=== PATIENT | female | born 1965 | race African-American/Black ===

== ENCOUNTER 2016-07-29 07:53 | Emergency (ER) | payer OTHER ==
[~2016-07-29] VITALS: Ht 175.3 cm; Wt 117.9 kg
[~2016-07-29 07:53] MED LIST: CYCL5TAB PO
[2016-07-29] MEDS ORDERED: IV NORMAL SALINE 1000ML BAG 1,000 ML IV SCH (08:22)
[2016-07-29] MEDS ORDERED: ONDANSETRON PF 4 MG/2 ML VIAL. IV ONE (08:30)
[2016-07-29 08:33] LABS: BILIRUBIN,URINE NEGATIVE (NEG); GLUCOSE,URINE NEGATIVE (NEG); NITRITE,URINE NEGATIVE (NEG); UROBILINOGEN,URINE 0.2 mg/dL (0.2 mg/dL)
[2016-07-29] MEDS: MORPHINE SULFATE 4 MG/ML DISP.SYRIN. IV/SQ PRN ×2 (08:35→09:13)
[2016-07-29 08:36] LABS: BASO # 0.1 x10^3/uL (0.0-0.2); BASO % 1 % (0-3); EOS % 0 % (0-3); HEMATOCRIT 39.8 % (36.0-47.0); HEMOGLOBIN 12.9 g/dL (12.0-15.5); LYMPH % 8 % (24-48); MEAN CORPUSCULAR HEMOGLOBIN 27 pg (25-35); MEAN CORPUSCULAR HGB CONC 33 g/dL (31-37); MEAN CORPUSCULAR VOLUME 84 fL (79-100); MONO % 4 % (0-9); NEUT % 87 % (31-73); PLATELET COUNT 360 x10^3/uL (140-400); RED BLOOD COUNT 4.76 x10^6/uL (3.50-5.40); RED CELL DISTRIBUTION WIDTH 15.4 % (11.5-14.5); WHITE BLOOD COUNT 12.3 x10^3/uL (4.0-11.0)
[2016-07-29 08:48] LABS: BACTERIA,URINE 0 /HPF (0-FEW); PROTEIN,URINE NEGATIVE (NEG-TRACE); RBC,URINE 0 /HPF (0-2); SQUAMOUS EPITHELIAL CELL,UR FEW /LPF; WBC,URINE 0 /HPF (0-4)
[2016-07-29 08:51] LABS: CALCIUM 9.3 mg/dL (8.5-10.1); CREATININE 0.7 mg/dL (0.6-1.0); GFR 107.2; POTASSIUM 3.7 mmol/L (3.5-5.1)
[2016-07-29 08:57] LABS: ALBUMIN 3.7 g/dL (3.4-5.0); ALBUMIN/GLOBULIN RATIO 0.8 (1.0-1.7); TOTAL BILIRUBIN 0.3 mg/dL (0.2-1.0); TOTAL PROTEIN 8.4 g/dL (6.4-8.2)
[2016-07-29] MEDS ORDERED: CONTRAST GIVEN MC PRN (09:15)
[2016-07-29] MEDS ORDERED: IOHEXOL 300 MG/ML 75 ML VIAL IV ONE (09:15)
--- NOTE | 2016-07-29 09:57 | RAD ---
EXAM: Abdomen and pelvis CT with intravenous contrast. HISTORY: Nausea, vomiting and diarrhea. Bloody stools. TECHNIQUE: Computed tomographic images of the abdomen and pelvis were obtained following the administration of 75 cc Omnipaque 300 intravenous contrast. Multiplanar reformatting was performed. COMPARISON: 12/05/2010. FINDINGS: Evaluation of the lower thorax demonstrates posterior dependent atelectasis. There is no infiltrate or effusion. There is hepatomegaly and hepatic steatosis. The gallbladder, pancreas, spleen and right adrenal gland are unremarkable. There is slight thickening of the left adrenal gland without a discrete nodule. There are 5 mm hypodense lesions within both kidneys, too small to characterize. There is no obstructive uropathy. The bladder is unremarkable. The appendix is prominent in caliber. However, there is no appendiceal wall thickening or surrounding stranding to suggest appendicitis. There is circumferential colonic wall thickening with slight pericolonic stranding extending from the distal transverse colon to the mid descending colon. There is no bowel obstruction. No pathologically enlarged lymph node is seen. There is no suspicious osseous lesion. There are degenerative changes throughout the lumbar spine. IMPRESSION: 1. Segmental mucosal thickening involving the colon from the distal transverse colon to the mid descending colon. This is likely due to infectious colitis or active inflammatory bowel disease. Follow-up to confirm resolution and exclude a mucosal lesion in this location. 2. Tiny hypodense lesions within both kidneys, too small to characterize and likely cysts. PQRS Compliance Statement: One or more of the following individualized dose reduction techniques were utilized for this examination: 1. Automated exposure control 2. Adjustment of the mA and/or kV according to patient size 3. Use of iterative reconstruction technique
--- NOTE | 2016-07-29 10:00 | PHYS DOC ---
Past Medical History Past Medical History: Diabetes-Type II, GERD, High Cholesterol, Hypertension, Other Additional Past Medical Histor: chronic back pain, herniated discs, sciatica Past Surgical History: Cervical Fusion, Hysterectomy, Other Additional Past Surgical Histo: elbow, hemorrhoidectomy Additional Information: nonsmoker Alcohol Use: None Drug Use: None Adult General Chief Complaint Chief Complaint: RECTAL BLEED HPI HPI Patient is a 51 year old female who presents with nausea, vomiting, diarrhea, and abdominal pain starting yesterday. She reports pain in the epigastric region. She's had 5-6 episodes of emesis. She's had numerous episodes of diarrhea. She reports that the bowel movements are bloody with mostly blood now passing. She denies fever or urinary symptoms. She feels generally weak. She reports having a normal colonoscopy approximately 1 year ago. Her PCP is Dr. Lupe Dorsey. Review of Systems Review of Systems Constitutional: Denies fever or chills. [] Eyes: Denies change in visual acuity, redness, or eye pain. [] HENT: Denies ear pain, nasal congestion or sore throat. [] Respiratory: Denies cough or shortness of breath. [] Cardiovascular: Denies chest pain, palpitations or edema. [] GI: Reports epigastric pain, nausea, vomiting, diarrhea, and bloody stools. : Denies dysuria, hematuria or urinary frequency. [] Musculoskeletal: Denies back pain or joint pain. [] Integument: Denies rash or skin lesions. [] Neurologic: Denies headache, focal weakness or sensory changes. [] Endocrine: Denies polyuria or polydipsia. [] Psych: Denies anxiety or depression. [] All systems reviewed and negative unless otherwise stated in the HPI. Current Medications Current Medications Current Medications Medications (Trade) Dose Ordered Sig/Brittney Start Time Stop Time Status Last Admin Dose Admin Info (Do NOT chart on this entry -- for MONITORING) 1 each PRN DAILY PRN 07/29/16 09:15 07/31/16 09:14 Iohexol (Omnipaque 300 Mg/ml) 75 ml 1X ONCE 07/29/16 09:15 07/29/16 09:16 DC 07/29/16 09:27 75 ML Morphine Sulfate 4 mg 4 mg PRN Q15MIN PRN 07/29/16 08:30 07/30/16 08:29 07/29/16 09:13 4 MG Multi-Ingredient Mouthwash/Gargle (Gi Cocktail Single Dose) 15 ml 1X ONCE 07/29/16 10:15 07/29/16 10:16 DC 07/29/16 10:04 15 ML Ondansetron HCl (Zofran) 4 mg 1X ONCE 07/29/16 08:30 07/29/16 08:31 DC 07/29/16 08:34 4 MG Sodium Chloride (Iv Sodium Chloride 0.9% 1000ml Bag) 1,000 ml @ 1,000 mls/hr Q1H 07/29/16 08:22 07/29/16 09:21 DC 07/29/16 08:35 1,000 MLS/HR Allergies Allergies Allergies Coded Allergies Type Severity Reaction Last Updated Verified No Known Drug Allergies 05/08/14 No Physical Exam Physical Exam Constitutional: Well developed, well nourished, no acute distress, non-toxic appearance. [] HENT: Normocephalic, atraumatic, oropharynx moist. [] Eyes: PERRLA, EOMI, conjunctiva normal, no discharge. [] Neck: Normal range of motion, no tenderness, supple, no stridor. [] Cardiovascular: Heart rate regular rhythm, no murmur. [] Lungs & Thorax: Bilateral breath sounds clear to auscultation without wheezes, rales, or rhonchi. [] Abdomen: Bowel sounds normal, soft, epigastric tenderness, no masses, no pulsatile masses. [] Skin: Warm, dry, no erythema, no rash. [] Extremities: No tenderness, ROM intact, no edema. Distal pulses equal bilaterally. [] Neurologic: Alert and oriented X 3, normal motor function, normal sensory function, no focal deficits noted. [] Psychologic: Affect normal, judgement normal, mood normal. [] Current Patient Data Vital Signs Vital Signs Date Time Temp Pulse Resp B/P Pulse Ox O2 Delivery O2 Flow Rate FiO2 07/29/16 09:45 15 07/29/16 08:05 98.1 87 159/84 94 Room Air 98.1 Lab Values Laboratory Tests Test 07/29/16 08:01 07/29/16 08:20 Urine Collection Type Unknown Urine Color Yellow Urine Clarity Clear Urine pH 8.0 Urine Specific [place] 1.015 Urine Protein Negativemg/dL (NEG-TRACE) Urine Glucose (UA) Negativemg/dL (NEG) Urine Ketones (Stick) Negativemg/dL (NEG) Urine Blood Negative (NEG) Urine Nitrite Negative (NEG) Urine Bilirubin Negative (NEG) Urine Urobilinogen Dipstick 0.2mg/dL (0.2 mg/dL) Urine Leukocyte Esterase Negative (NEG) Urine RBC 0/HPF (0-2) Urine WBC 0/HPF (0-4) Urine Squamous Epithelial Cells Few/LPF Urine Bacteria 0/HPF (0-FEW) White Blood Count 12.3x10^3/uL (4.0-11.0) H Red Blood Count 4.76x10^6/uL (3.50-5.40) Hemoglobin 12.9g/dL (12.0-15.5) Hematocrit 39.8% (36.0-47.0) Mean Corpuscular Volume 84fL (79-100) Mean Corpuscular Hemoglobin 27pg (25-35) Mean Corpuscular Hemoglobin Concent 33g/dL (31-37) Red Cell Distribution Width 15.4% (11.5-14.5) H Platelet Count 360x10^3/uL (140-400) Neutrophils (%) (Auto) 87% (31-73) H Lymphocytes (%) (Auto) 8% (24-48) L Monocytes (%) (Auto) 4% (0-9) Eosinophils (%) (Auto) 0% (0-3) Basophils (%) (Auto) 1% (0-3) Neutrophils # (Auto) 10.8x10^3uL (1.8-7.7) H Lymphocytes # (Auto) 1.0x10^3/uL (1.0-4.8) Monocytes # (Auto) 0.5x10^3/uL (0.0-1.1) Eosinophils # (Auto) 0.0x10^3/uL (0.0-0.7) Basophils # (Auto) 0.1x10^3/uL (0.0-0.2) Segmented Neutrophils % 78% (35-66) H Band Neutrophils % 2% (0-9) Lymphocytes % 10% (24-48) L Monocytes % 9% (0-10) Basophils % 1% (0-3) Platelet Estimate Adequate (ADEQUATE) Sodium Level 143mmol/L (136-145) Potassium Level 3.7mmol/L (3.5-5.1) Chloride Level 103mmol/L (98-107) Carbon Dioxide Level 27mmol/L (21-32) Anion Gap 13 (6-14) Blood Urea Nitrogen 12mg/dL (7-20) Creatinine 0.7mg/dL (0.6-1.0) Estimated GFR (Cockcroft-Gault) 107.2 BUN/Creatinine Ratio 17 (6-20) Glucose Level 189mg/dL (70-99) H Calcium Level 9.3mg/dL (8.5-10.1) Total Bilirubin 0.3mg/dL (0.2-1.0) Aspartate Amino Transferase (AST) 14U/L (15-37) L Alanine Aminotransferase (ALT) 25U/L (14-59) Alkaline Phosphatase 81U/L (46-116) Total Protein 8.4g/dL (6.4-8.2) H Albumin 3.7g/dL (3.4-5.0) Albumin/Globulin Ratio 0.8 (1.0-1.7) L Lipase 89U/L (73-393) Laboratory Tests 07/29/16 08:20 Laboratory Tests 07/29/16 08:20 EKG EKG [] Radiology/Procedures Radiology/Procedures REASON: n/v/d, blood in stool PROCEDURE: ABD PELV W/ IV CONTRAST ONLY EXAM: Abdomen and pelvis CT with intravenous contrast. HISTORY: Nausea, vomiting and diarrhea. Bloody stools. TECHNIQUE: Computed tomographic images of the abdomen and pelvis were obtained following the administration of 75 cc Omnipaque 300 intravenous contrast. Multiplanar reformatting was performed. COMPARISON: 12/05/2010. FINDINGS: Evaluation of the lower thorax demonstrates posterior dependent atelectasis. There is no infiltrate or effusion. There is hepatomegaly and hepatic steatosis. The gallbladder, pancreas, spleen and right adrenal gland are unremarkable. There is slight thickening of the left adrenal gland without a discrete nodule. There are 5 mm hypodense lesions within both kidneys, too small to characterize. There is no obstructive uropathy. The bladder is unremarkable. The appendix is prominent in caliber. However, there is no appendiceal wall thickening or surrounding stranding to suggest appendicitis. There is circumferential colonic wall thickening with slight pericolonic stranding extending from the distal transverse colon to the mid descending colon. There is no bowel obstruction. No pathologically enlarged lymph node is seen. There is no suspicious osseous lesion. There are degenerative changes throughout the lumbar spine. IMPRESSION: 1. Segmental mucosal thickening involving the colon from the distal transverse colon to the mid descending colon. This is likely due to infectious colitis or active inflammatory bowel disease. Follow-up to confirm resolution and exclude a mucosal lesion in this location. 2. Tiny hypodense lesions within both kidneys, too small to characterize and likely cysts. Course & Med Decision Making Course & Med Decision Making Pertinent Labs and Imaging studies reviewed. (See chart for details) Patient is a 51-year-old female presents with nausea, vomiting, diarrhea with bloody stools, and abdominal pain. Upon arrival to the emergency department, her vital signs are stable. On exam, her abdomen is soft and nonsurgical with epigastric tenderness. No significant laboratory abnormalities. Her CT scan shows lightest of the transverse and descending colon. Her pain improved with IV morphine. She received Zofran, a GI cocktail, and Compazine for her nausea. I discussed the results with the patient. She is instructed to follow up with GI after completion of her antibiotic treatment. She is discharged home in stable condition with prescriptions for Cipro, Flagyl, [place], and Zofran. Return precautions were discussed. She verbalizes understanding and agrees with plan. Dragon Disclaimer Dragon Disclaimer This electronic medical record was generated, in whole or in part, using a voice recognition dictation system. Departure Departure Impression: Primary Impression: Colitis Disposition: 01 HOME, SELF-CARE Condition: IMPROVED Referrals: LUPE DORSEY MD (PCP) YEHUDA CARR MD Patient Instructions: Colitis Additional Instructions: Your CT scan shows colitis, which explains the pain, nausea, vomiting, and bloody stools that you have been experiencing. Please complete all of the prescribed antibiotics, even if you are feeling better. Please take the prescribed pain medication as directed. Do not drive or operate heavy machinery while taking pain medication. Please follow-up with the GI doctor listed below or the GI doctor of your choice after completion of the antibiotics. Return to emergency department if you have fever, increased pain, continued vomiting, increased blood in the stools, or other new or concerning symptoms. Scripts Ciprofloxacin Hcl (Cipro)500 Mg Tablet1 Tab PO BID #14 TAB Prov:LEAH BARROS 07/29/16 Ondansetron (Zofran Odt)4 Mg Tab.rapdis1 Tab SL Q8HRS #10 TAB Prov:LEAH BARROS 07/29/16 Hydrocodone/Apap 5-325 ([place] 5-325 Tablet)1 Each Tablet1 Tab PO PRN Q6HRS PRN PAIN #20 TAB Prov:LEAH BARROS 07/29/16 Metronidazole (Flagyl)500 Mg Tablet1 Tab PO BID #14 TAB Prov:LEAH BARROS 07/29/16 LEAH BARROS Jul 29, 2016 10:00
[2016-07-29 10:09] LABS: % BASOS 1 % (0-3)
[2016-07-29 10:10] LABS: PLT ESTIMATE ADEQUATE (ADEQUATE)
[2016-07-29] MEDS ORDERED: LIDO:MAALOX:DONNATAL 1:1:1 15 ML SINGLE DOSE SWSW ONE (10:15)
[2016-07-29] MEDS ORDERED: HYDR-971 PO (10:59)
[2016-07-29] MEDS ORDERED: ONDA4TAB10 SL (10:59)
[2016-07-29] MEDS ORDERED: METR500T PO (10:59)
[2016-07-29] MEDS ORDERED: CIPR500T94 PO (10:59)
[2016-07-29 11:08] VITALS: BP 139/67
[2016-07-29] MEDS ORDERED: PROCHLORPERAZINE 10 MG/2 ML VIAL. IV ONE (11:15)
== END 2016-07-29 11:10 | disposition home or self-care (01) ==
LOC: ER 07:53
DX: K52.9 Noninfective gastroenteritis and colitis, unspecified (principal); E11.9 Type 2 diabetes mellitus without complications; K21.9 Gastro-esophageal reflux disease without esophagitis; E78.00 Pure hypercholesterolemia, unspecified; I10 Essential (primary) hypertension; G89.29 Other chronic pain; Z90.710 Acquired absence of both cervix and uterus
CPT/HCPCS: 36415; 74177; 80053; 81001; 83690; 85007; 85027; 96361; 96374; 96375; 96376; 99285; J0780; J2270; J2405; J7030; Q9967

== ENCOUNTER 2016-07-31 11:48 | Inpatient (IN) | payer OTHER ==
[~2016-07-31] VITALS: Ht 180.3 cm; Wt 116.1 kg
[~2016-07-31 11:48] MED LIST changes: +CIPR500T94 PO; +HYDR-971 PO; +METR500T PO; +ONDA4TAB10 SL
[2016-07-31] MEDS ORDERED: IV NORMAL SALINE 1000ML BAG 1,000 ML IV SCH (13:20)
[2016-07-31] MEDS ORDERED: ONDANSETRON PF 4 MG/2 ML VIAL. IV ONE (13:30)
[2016-07-31] MEDS: FENTANYL PF 100 MCG/2 ML VIAL. IV PRN ×3 (13:52→23:34)
[2016-07-31 13:58] LABS: BASO # 0.2 x10^3/uL (0.0-0.2); BASO % 1 % (0-3); EOS % 1 % (0-3); HEMATOCRIT 38.9 % (36.0-47.0); LYMPH # 3.9 x10^3/uL (1.0-4.8); LYMPH % 20 % (24-48); MEAN CORPUSCULAR HEMOGLOBIN 28 pg (25-35); MEAN CORPUSCULAR HGB CONC 33 g/dL (31-37); MEAN CORPUSCULAR VOLUME 84 fL (79-100); MONO % 8 % (0-9); NEUT % 71 % (31-73); PLATELET COUNT 361 x10^3/uL (140-400); RED BLOOD COUNT 4.63 x10^6/uL (3.50-5.40); RED CELL DISTRIBUTION WIDTH 15.7 % (11.5-14.5); WHITE BLOOD COUNT 19.8 x10^3/uL (4.0-11.0)
[2016-07-31 14:01] LABS: CALCIUM 9.6 mg/dL (8.5-10.1); CREATININE 0.8 mg/dL (0.6-1.0); GFR 91.9; POTASSIUM 3.3 mmol/L (3.5-5.1)
[2016-07-31 14:14] LABS: NEG OBC FOB NEG; POS OBC FOB POS
--- NOTE | 2016-07-31 14:38 | PHYS DOC ---
Past Medical History Past Medical History: Diabetes-Type II, GERD, High Cholesterol, Hypertension, Other Additional Past Medical Histor: chronic back pain, herniated discs, sciatica, colitis Past Surgical History: Cervical Fusion, Hysterectomy, Other Additional Past Surgical Histo: elbow, hemorrhoidectomy Additional Information: "quit eight years ago" Alcohol Use: None Drug Use: None Adult General Chief Complaint Chief Complaint: RECTAL BLEED HPI HPI Patient is a 51 year old female who presents with complaints of intractable nausea and vomiting and continued abdominal pain and new bright red blood per rectum. She was seen here 2 days ago and diagnosed with colitis. She went home with Cipro and Flagyl, as well as pain meds and nausea meds. She states she has been vomiting these medications as well as her chronic medications. She has been able to tolerate some liquids however. She is not otherwise tolerating solids. She has continued bilateral lower abdominal pain that is achy, constant , fluctuating in intensity. She had one right red bloody bowel movement today and has not had a bowel movement since. She did not have bowel movement yesterday. She discussed with her primary care doctor, and was recommended to come back to the emergency department for admission with consultation by Dr Faulkner , gastroenterology. She denies fever or chills, chest pain, cough, dyspnea, dysuria, food fear. Review of Systems Review of Systems Constitutional: Denies fever or chills [] Eyes: Denies change in visual acuity, redness, or eye pain [] HENT: Denies nasal congestion or sore throat [] Respiratory: Denies cough or shortness of breath [] Cardiovascular: No additional information not addressed in HPI [] GI: Has abdominal pain, nausea, vomiting, bloody stools and diarrhea [] : Denies dysuria or hematuria [] Musculoskeletal: Denies back pain or joint pain [] Integument: Denies rash or skin lesions [] Neurologic: Denies headache, focal weakness or sensory changes [] Endocrine: Denies polyuria or polydipsia [] Current Medications Current Medications Current Medications Medications (Trade) Dose Ordered Sig/Brittney Start Time Stop Time Status Last Admin Dose Admin Acetaminophen (Tylenol) 650 mg PRN Q4HRS PRN 07/31/16 15:00 08/01/16 14:59 UNV Fentanyl Citrate (Fentanyl 2ml Vial) 50 mcg PRN Q2HR PRN 07/31/16 15:00 08/01/16 14:59 Fentanyl Citrate 50 mcg 50 mcg PRN Q15MIN PRN 07/31/16 13:30 08/01/16 13:29 07/31/16 14:56 50 MCG Ondansetron HCl (Zofran) 4 mg PRN Q8HRS PRN 07/31/16 15:00 08/01/16 14:59 Sodium Chloride (Iv Sodium Chloride 0.9% 1000ml Bag) 1,000 ml @ 1,000 mls/hr Q1H 07/31/16 13:20 07/31/16 14:19 DC 07/31/16 13:48 1,000 MLS/HR Allergies Allergies Allergies Coded Allergies Type Severity Reaction Last Updated Verified No Known Drug Allergies 05/08/14 No Physical Exam Physical Exam Constitutional: Well developed, well nourished, no acute distress, non-toxic appearance. [] HENT: Normocephalic, atraumatic, bilateral external ears normal, oropharynx moist, nose normal. [] Eyes: PERRLA, EOMI. [] Neck: Normal range of motion, supple. [] Cardiovascular:Heart rate regular rhythm [] Lungs & Thorax: Bilateral breath sounds clear to auscultation [] Abdomen: Bowel sounds normal, soft, moderate bilateral lower abdominal tenderness, rectal exam with dark red bloody stool in vault, no external hemorrhoid or fissure, nontender rectal exam. [] Skin: Warm, dry, no erythema, no rash. [] Back: No tenderness, no CVA tenderness. [] Extremities: ROM intact, no edema. [] Neurologic: Alert and oriented X 3, normal motor function, normal sensory function, no focal deficits noted. [] Psychologic: Affect normal, judgement normal, mood normal. [] Current Patient Data Vital Signs Vital Signs Date Time Temp Pulse Resp B/P Pulse Ox O2 Delivery O2 Flow Rate FiO2 07/31/16 14:56 16 98 Room Air 07/31/16 13:25 98.4 86 152/77 98.4 Lab Values Laboratory Tests Test 07/31/16 13:35 07/31/16 13:40 Stool Occult Blood Positive (NEG) White Blood Count 19.8x10^3/uL (4.0-11.0) #H Red Blood Count 4.63x10^6/uL (3.50-5.40) Hemoglobin 13.0g/dL (12.0-15.5) Hematocrit 38.9% (36.0-47.0) Mean Corpuscular Volume 84fL (79-100) Mean Corpuscular Hemoglobin 28pg (25-35) Mean Corpuscular Hemoglobin Concent 33g/dL (31-37) Red Cell Distribution Width 15.7% (11.5-14.5) H Platelet Count 361x10^3/uL (140-400) Neutrophils (%) (Auto) 71% (31-73) Lymphocytes (%) (Auto) 20% (24-48) L Monocytes (%) (Auto) 8% (0-9) Eosinophils (%) (Auto) 1% (0-3) Basophils (%) (Auto) 1% (0-3) Neutrophils # (Auto) 13.9x10^3uL (1.8-7.7) H Lymphocytes # (Auto) 3.9x10^3/uL (1.0-4.8) Monocytes # (Auto) 1.6x10^3/uL (0.0-1.1) H Eosinophils # (Auto) 0.2x10^3/uL (0.0-0.7) Basophils # (Auto) 0.2x10^3/uL (0.0-0.2) Sodium Level 140mmol/L (136-145) Potassium Level 3.3mmol/L (3.5-5.1) L Chloride Level 99mmol/L (98-107) Carbon Dioxide Level 31mmol/L (21-32) Anion Gap 10 (6-14) Blood Urea Nitrogen 10mg/dL (7-20) Creatinine 0.8mg/dL (0.6-1.0) Estimated GFR (Cockcroft-Gault) 91.9 Glucose Level 157mg/dL (70-99) H Calcium Level 9.6mg/dL (8.5-10.1) Laboratory Tests 07/31/16 13:40 Laboratory Tests 07/31/16 13:40 Course & Med Decision Making Course & Med Decision Making Pertinent Labs and Imaging studies reviewed. (See chart for details) She has leukocytosis and mild hypokalemia. Rectal exam with obvious bloody stool. Concern for infectious colitis with bloody stool versus lower GI bleed associated with colitis versus ischemic colitis. Discussed case with Dr. Hui , who will admit. Discussed case with Dr. Faulkner, gastroenterology, who will see her and patient. He recommends against antibiotics at this time. Dragon Disclaimer Dragon Disclaimer This electronic medical record was generated, in whole or in part, using a voice recognition dictation system. Departure Departure Impression: Primary Impression: GI bleed Additional Impression: Colitis Disposition: ADMITTED INPATIENT Condition: STABLE Referrals: LUPE GUZMÁN MD (PCP) Problem Qualifiers Primary Impression: GI bleed GI bleed type/associated pathology: unspecified gastrointestinal hemorrhage type Qualified Code: K92.2 - Gastrointestinal hemorrhage, unspecified Kvng ASHLEY MD Jul 31, 2016 14:38
[2016-07-31] MEDS ORDERED: ONDANSETRON PF 4 MG/2 ML VIAL. IV PRN (15:00)
[2016-07-31] MEDS ORDERED: ACETAMINOPHEN 325 MG TABLET. PO PRN (15:00)
[2016-07-31] MEDS: POTASSIUM CHLORIDE 30 MEQ in IV 1/2 NORMAL SALINE 1,000 ML IV SCH (15:33)
--- NOTE | 2016-07-31 16:24 | ACF ---
Admission Forms Criteria GASTROINTESTINAL BLEEDING Clinical Indications for Inpatient Care (Place 'X' for any and all applicable criteria): Ongoing inpatient care may be indicated for gastrointestinal bleeding with ANY ONE of the following (4)(20)(21)(22)(23)(24): [X]I. Active bleeding (eg, fresh voluminous blood in emesis or nasogastric aspirate, or per rectum) [ ]II. Hemodynamic instability [ ]III. Anticoagulation therapy or coagulopathy ((eg, advanced liver disease, irreversible anticoagulation) [ ]IV. Ischemic colitis (22) [ ]V. Endoscopy showing arterial bleeding, adherent clot, nonbleeding visible vessel, varices, flat red spots, ulcer size greater than 2 cm, or portal hypertensive gastropathy [ ]. High-risk low platelet count [ ]VII. Anemia requiring inpatient care as indicated by ANY ONE of the following a)[ ] Cognitive impairment b)[ ] Syncope c)[ ] Heart failure d)[ ] Chest pain e)[ ] Dyspnea f)[ ] Other findings suggesting inadequate perfusion (eg, peripheral or myocardial ischemia, end organ dysfunction) [ ]VIII. High-risk low platelet count [ ]IX. Suspected variceal cause of bleeding as indicated by ANY ONE of the following(27)(28): a)[ ] Known varices b)[ ] Hepatomegaly or splenomegaly c)[ ] Ascites d)[ ] Jaundice or scleral icterus e)[ ] History of liver disease (eg, cirrhosis) f)[ ] Physical findings of portal hypertension (eg, caput medusa) g)[ ] Comorbid disorder indicating risk for portal vein thrombosis (eg , abdominal surgery, sepsis, shock, exchange transfusion, prior umbilical vein catheterization) Extended stay may be needed until ALL of the following are present(20)(38)(47): [ ]a) Hemodynamic stability [ ]b) No evidence of active bleeding (eg, stable Hematocrit) [ ]c) Platelet count, prothrombin time, and partial thromboplastin time acceptable for next level of care [ ]d) Surgical or other acute intervention not needed [ ]e) Oral hydration and diet tolerated The original [email or web address] content created by [employer] has been revised. The portions of the content which have been revised are identified through the use of italic text or in bold, and [employer] has neither reviewed nor approved the modified material. All other unmodified content is copyright [facility]. Please see references footnoted in the original [facility] edition 2016 Admission Criteria Met?: Yes GILSON BUCHANAN Jul 31, 2016 16:23
[2016-07-31 18:24] VITALS: BP 133/79
[2016-07-31 19:00] VITALS: BP 132/76
--- NOTE | 2016-07-31 19:13 | PDOC ---
Provider Note Provider Note Patient Name: Jeannie Milton Unit Number: [id number] Date of : 1965 Patient Status: Admitted Inpatient Primary Care Physician: Zeenat Dorsey MD GI Consultation: Zion Faulnker MD Chief Complaint: Chief compliants: N/V, Dehydration, Rectal bleeding, Abdominal pain HPI Patient got sick suddenly last sunday at 11pm. She denied trauma, travel, clustering of similar illness in family or friends. She developed sudden onset severe LQ abdominal pain spreading to rest of the abdomen. It is described as severe cramps. It was accompanied by rectal bleedig (BRBPR with no stools) and blood clots. She was seen in the [facility] ER. CT showed left sided segmental colitis c/w ischemia. She was discharged home on Cipro + Flagyl. She returned to the ER with severe pain, N/V and poor oral intake. She was started on IFV + Narcotics and feeling better. Her last colonoscopy done by me on 09-01-2015. It showed left sided diverticulosis and rectal polyp (hyperplastic) Past Medical History Past Medical History: Diabetes-Type II, GERD, High Cholesterol, Hypertension, obesity Additional Past Medical Histor: chronic back pain, herniated discs, sciatica, colitis Past Surgical History: Cervical Fusion, Hysterectomy, Other Additional Past Surgical Histo: elbow, hemorrhoidectomy, EGD and Colonoscopy, Thyroid surgery Social History: Tobacco: "quit eight years ago" Alcohol Use: None Drug Use: None PCM: Dr.Karol Dorsey Review of Systems Review of Systems Constitutional: Denies fever or chills [] Eyes: Denies change in visual acuity, redness, or eye pain [] HENT: Denies nasal congestion or sore throat [] Respiratory: Denies cough or shortness of breath [] Cardiovascular: No additional information not addressed in HPI [] GI: Has abdominal pain, nausea, vomiting, bloody stools and diarrhea [] : Denies dysuria or hematuria [] Musculoskeletal: Denies back pain or joint pain [] Integument: Denies rash or skin lesions [] Neurologic: Denies headache, focal weakness or sensory changes [] Endocrine: Denies polyuria or polydipsia [] Current Medications Current Medications Current Medications Medications (Trade) Dose Ordered Sig/Brittney Start Time Stop Time Status Last Admin Dose Admin Acetaminophen (Tylenol) 650 mg PRN Q4HRS PRN 07/31/16 15:00 08/01/16 14:59 UNV Fentanyl Citrate (Fentanyl 2ml Vial) 50 mcg PRN Q2HR PRN 07/31/16 15:00 08/01/16 14:59 Fentanyl Citrate 50 mcg 50 mcg PRN Q15MIN PRN 07/31/16 13:30 08/01/16 13:29 07/31/16 14:56 50 MCG Ondansetron HCl (Zofran) 4 mg PRN Q8HRS PRN 07/31/16 15:00 08/01/16 14:59 Sodium Chloride (Iv Sodium Chloride 0.9% 1000ml Bag) 1,000 ml @ 1,000 mls/hr Q1H 07/31/16 13:20 07/31/16 14:19 DC 07/31/16 13:48 1,000 MLS/HR Allergies Allergies Allergies Coded Allergies Type Severity Reaction Last Updated Verified No Known Drug Allergies 05/08/14 No Physical Exam Physical Exam Constitutional: Well developed, well nourished, no acute distress, non-toxic appearance. [] HENT: Normocephalic, atraumatic, bilateral external ears normal, oropharynx moist, nose normal. [] Eyes: PERRLA, EOMI. [] Neck: Normal range of motion, supple. [] Cardiovascular:Heart rate regular rhythm [] Lungs & Thorax: Bilateral breath sounds clear to auscultation [] Abdomen: Bowel sounds normal, soft, moderate bilateral lower abdominal tenderness, rectal exam See ER note [] Skin: Warm, dry, no erythema, no rash. [] Back: No tenderness, no CVA tenderness. [] Extremities: ROM intact, no edema. [] Neurologic: Alert and oriented X 3, normal motor function, normal sensory function, no focal deficits noted. [] Current Patient Data Vital Signs Vital Signs Date Time Temp Pulse Resp B/P Pulse Ox O2 Delivery O2 Flow Rate FiO2 07/31/16 14:56 16 98 Room Air 07/31/16 13:25 98.4 86 152/77 98.4 Lab Values Laboratory Tests Test 07/31/16 13:35 07/31/16 13:40 Stool Occult Blood Positive (NEG) White Blood Count 19.8x10^3/uL (4.0-11.0) #H Red Blood Count 4.63x10^6/uL (3.50-5.40) Hemoglobin 13.0g/dL (12.0-15.5) Hematocrit 38.9% (36.0-47.0) Mean Corpuscular Volume 84fL (79-100) Mean Corpuscular Hemoglobin 28pg (25-35) Mean Corpuscular Hemoglobin Concent 33g/dL (31-37) Red Cell Distribution Width 15.7% (11.5-14.5) H Platelet Count 361x10^3/uL (140-400) Neutrophils (%) (Auto) 71% (31-73) Lymphocytes (%) (Auto) 20% (24-48) L Monocytes (%) (Auto) 8% (0-9) Eosinophils (%) (Auto) 1% (0-3) Basophils (%) (Auto) 1% (0-3) Neutrophils # (Auto) 13.9x10^3uL (1.8-7.7) H Lymphocytes # (Auto) 3.9x10^3/uL (1.0-4.8) Monocytes # (Auto) 1.6x10^3/uL (0.0-1.1) H Eosinophils # (Auto) 0.2x10^3/uL (0.0-0.7) Basophils # (Auto) 0.2x10^3/uL (0.0-0.2) Sodium Level 140mmol/L (136-145) Potassium Level 3.3mmol/L (3.5-5.1) L Chloride Level 99mmol/L (98-107) Carbon Dioxide Level 31mmol/L (21-32) Anion Gap 10 (6-14) Blood Urea Nitrogen 10mg/dL (7-20) Creatinine 0.8mg/dL (0.6-1.0) Estimated GFR (Cockcroft-Gault) 91.9 Glucose Level 157mg/dL (70-99) H Calcium Level 9.6mg/dL (8.5-10.1) Laboratory Tests 07/31/16 13:40 Laboratory Tests 07/31/16 13:40 CT scan from 07-29-2015 was personally reviewed by me. Results in radiology. Plan and Assessment: 1. Abdominal pain and tenderness: Multiple 2. Rectal bleeding 3. Dehydration 4. Leucocytosis 6. Fatty liver. 7. Ischemic colitis 8. Hypokalemia 9. GERD 10. Diverticulosis. Recommendations: 1. IVF 2. Start oral intake 3. Defer antibiotics 4. Stools for C.diff and cultures 5. PPI as needed 6. Pain control: Prefer no narcotics 7. Office follow up in 2-3 days 8. Defer endoscopy now. 9. Discharge as soon as feasible. Patient counselled regarding ischemic colitis natural history, complications and treatment; diverticulosis, GERD SMD YANIV Espinosa SRINIVASA G MD Jul 31, 2016 19:13
[2016-07-31] MEDS ORDERED: ONDANSETRON ODT 4 MG TAB.RAPDIS PO PRN (22:45)
[2016-07-31] MEDS ORDERED: HYDROCODONE/APAP 5/325MG TABLET. PO PRN (22:45)
[2016-07-31 23:00] VITALS: BP 133/83
[2016-07-31] MEDS ORDERED: DEXTROSE 50% 25 GM / 50ML DISP.SYRIN. IV PRN (23:00)
--- NOTE | 2016-07-31 23:28 | HP ---
ADMIT DATE: 07/31/2016 CHIEF COMPLAINT: Abdominal pain, hematochezia HISTORY OF PRESENT ILLNESS: The patient is a 51-year-old, woman, with past medical history of diabetes, hypertension, who had gone to the Emergency Room on Sunday, 2 days ago, with abdominal pain. She had undergone a CT which showed colitis, suspected infectious, and had been discharged on Cipro and Flagyl. However, the patient's abdominal did not improve, and she developed hematochezia today, and other symptoms including nausea prevented further p.o. medications at home and the patient re-presented to the Emergency Room today. Her white blood cell count here was found elevated at 19 and the patient was therefore admitted for failure of p.o. treatment. A repeat CT of the abdomen was not obtained. PAST MEDICAL HISTORY: Diabetes mellitus, hypertension, hypercholesterolemia, GERD, history of chronic back pain with herniated disk resulting in sciatica, history of colitis. PAST SURGICAL HISTORY: Cervical fusion, hysterectomy, as well as hemorrhoidectomy and elbow surgery. FAMILY HISTORY: No other family members with hypertension, diabetes, but multiple cancers including four of her six aunts and uncles of various cancer. Mother had breast cancer. Aunts and uncles with lung cancer, colon cancer, and others. SOCIAL HISTORY: Quit smoking many years ago. No toxic habits. ALLERGIES: No known drug allergies. MEDICATIONS: MAR reconciled with home medications. REVIEW OF SYSTEMS: Abdominal pain is much improved. She admits that she was quite scared when she saw blood as her aunt had of colorectal carcinoma. No ongoing issues at this time. Rest of organ system review is negative. PHYSICAL EXAMINATION: VITAL SIGNS: Today show blood pressure of 132/76, heart rate of 76, respiratory rate at 18. She is afebrile. GENERAL: This is an obese, 51-year-old, woman, alert and oriented, in no acute distress, very pleasant. HEENT: Shows no scleral icterus. Oral mucosa is pink and moist. NECK: Supple, without any lymphadenopathy. LUNGS: Clear to auscultation bilaterally. ABDOMEN: Has positive bowel sounds, soft. No tenderness to palpation throughout. EXTREMITIES: Show no edema, no clubbing, no cyanosis. SKIN: Warm, soft and dry. LABORATORY DATA: CBC with a WBC of 19.8, hemoglobin 13.0, platelets of 376. Differential with 71% neutrophils and 20% lymphocytes. Chemistries with a BUN and creatinine of 10 and 0.8, potassium at 3.3; otherwise, electrolytes within normal limits. Occult blood was indeed positive. IMAGING STUDIES: CT reviewed from July 29 shows segmental mucosal thickening involving the colon from the distal transverse colon to the mid descending colon. This is likely due to infectious colitis or active inflammatory bowel disease. ASSESSMENT AND PLAN: The patient is a 51-year-old, woman, presenting with signs of colitis with new hematochezia since today. She has been seen by her exchange clerk, Dr. Faulkner, who is not planning a repeat colonoscopy as she did have her screening colonoscopy just a year ago. Risks of endoscopy would be fairly high with minimal gain at this time. Given stability of her hemoglobins, we will monitor for the time being. Question of infectious versus ischemic colitis is raised. As bleeding is not improving, consider CTA of the abdomen. We will continue infectious coverage for now, especially since WBC is still elevated. Cautious p.o. intake as tolerated. Treat symptomatically for other gastrointestinal symptoms. She does have history of diabetes mellitus which currently is fairly well controlled. We will continue her home regimen, add insulin sliding scale to this to monitor. We will continue her other home medications including for hypertension. Monitor vital signs. Prophylaxis will be instituted with PPI. I will hold off on other blood thinners given mild gastrointestinal bleed. VIKKI MALDONADO MD DR: UR/nts JOB#: [id number] / [id number] LUPE Paul MD [facility]
[2016-08-01] MEDS: POTASSIUM CHLORIDE 30 MEQ in IV 1/2 NORMAL SALINE 1,000 ML IV SCH ×2 (00:17→16:40)
[2016-08-01 06:20] LABS: BASO # 0.1 x10^3/uL (0.0-0.2); BASO % 1 % (0-3); EOS % 2 % (0-3); HEMATOCRIT 35.6 % (36.0-47.0); HEMOGLOBIN 11.5 g/dL (12.0-15.5); LYMPH # 3.2 x10^3/uL (1.0-4.8); LYMPH % 22 % (24-48); MEAN CORPUSCULAR HEMOGLOBIN 27 pg (25-35); MEAN CORPUSCULAR HGB CONC 32 g/dL (31-37); MEAN CORPUSCULAR VOLUME 84 fL (79-100); MONO % 9 % (0-9); NEUT % 67 % (31-73); PLATELET COUNT 311 x10^3/uL (140-400); RED BLOOD COUNT 4.23 x10^6/uL (3.50-5.40); RED CELL DISTRIBUTION WIDTH 15.3 % (11.5-14.5); WHITE BLOOD COUNT 14.7 x10^3/uL (4.0-11.0)
[2016-08-01 06:28] LABS: ALBUMIN 2.7 g/dL (3.4-5.0); ALBUMIN/GLOBULIN RATIO 0.6 (1.0-1.7); CALCIUM 8.5 mg/dL (8.5-10.1); CREATININE 0.7 mg/dL (0.6-1.0); GFR 107.2; POTASSIUM 3.4 mmol/L (3.5-5.1); TOTAL BILIRUBIN 0.3 mg/dL (0.2-1.0); TOTAL PROTEIN 6.9 g/dL (6.4-8.2)
[2016-08-01 07:00] VITALS: BP 143/78
[2016-08-01] MEDS: INSULIN ASPART 300 UNITS/3 ML INSULN.PEN SQ SCH ×3 (08:00→17:00)
[2016-08-01] MEDS: FENTANYL PF 100 MCG/2 ML VIAL. IV PRN (09:28)
[2016-08-01 11:20] VITALS: BP 144/86
[2016-08-01] MEDS ORDERED: OMEP40CA5 PO (11:36)
[2016-08-01] MEDS ORDERED: LISI1TAB7 PO (11:36)
[2016-08-01] MEDS ORDERED: FEXO180T5 PO (11:36)
[2016-08-01] MEDS ORDERED: DILT120T3 PO (11:36)
[2016-08-01] MEDS ORDERED: ASPI-482 PO (11:36)
[2016-08-01] MEDS ORDERED: MONT10TA9 PO (11:36)
[2016-08-01] MEDS ORDERED: PRAV40TA2 PO (11:36)
[2016-08-01] MEDS ORDERED: IBUP-1060 PO (11:36)
[2016-08-01] MEDS ORDERED: INSU100I17 SQ (11:36)
[2016-08-01] MEDS ORDERED: PROAIR HFA8.5 GM INH (11:36)
[2016-08-01] MEDS ORDERED: SITA1TBM4 PO (11:36)
[2016-08-01] MEDS ORDERED: INSU100I13 SQ (11:36)
--- NOTE | 2016-08-01 12:29 | PDOC ---
PROGRESS NOTES Chief Complaint Chief Complaint Colitis ASSESSMENT AND PLAN: 1. Colitis: suspected infectious with WBC response clinical presentation and CT imaging, but cannot r/o ischemic. cautious PO intake. cont Abx. pain much improved 2. DM: well controlled. holding sitagliptin for now. ISS 3. Hypokalemia: replete IV 4. anemia: acute drop in H/H, suspect more dilutional than GI bleed. monitor 5. HTN: well controlled on home regimen. 6. HLD: on statin 6. Prophylaxis: PPI Vitals Vitals Vital Signs Date Time Temp Pulse Resp B/P Pulse Ox O2 Delivery O2 Flow Rate FiO2 08/01/16 11:20 98.1 85 17 144/86 96 Room Air 98.1 Physical Exam General: Alert, Oriented X3, Cooperative Heart: Regular rate Lungs: Clear Abdomen: Normal bowel sounds, Soft, No tenderness Extremities: No edema Skin: No rashes Labs LABS Laboratory Tests Test 07/31/16 13:35 07/31/16 13:40 07/31/16 14:50 08/01/16 05:10 Stool Occult Blood Positive (NEG) White Blood Count 19.8x10^3/uL (4.0-11.0) 14.7x10^3/uL (4.0-11.0) Red Blood Count 4.63x10^6/uL (3.50-5.40) 4.23x10^6/uL (3.50-5.40) Hemoglobin 13.0g/dL (12.0-15.5) 11.5g/dL (12.0-15.5) Hematocrit 38.9% (36.0-47.0) 35.6% (36.0-47.0) Mean Corpuscular Volume 84fL (79-100) 84fL (79-100) Mean Corpuscular Hemoglobin 28pg (25-35) 27pg (25-35) Mean Corpuscular Hemoglobin Concent 33g/dL (31-37) 32g/dL (31-37) Red Cell Distribution Width 15.7% (11.5-14.5) 15.3% (11.5-14.5) Platelet Count 361x10^3/uL (140-400) 311x10^3/uL (140-400) Neutrophils (%) (Auto) 71% (31-73) 67% (31-73) Lymphocytes (%) (Auto) 20% (24-48) 22% (24-48) Monocytes (%) (Auto) 8% (0-9) 9% (0-9) Eosinophils (%) (Auto) 1% (0-3) 2% (0-3) Basophils (%) (Auto) 1% (0-3) 1% (0-3) Neutrophils # (Auto) 13.9x10^3uL (1.8-7.7) 9.9x10^3uL (1.8-7.7) Lymphocytes # (Auto) 3.9x10^3/uL (1.0-4.8) 3.2x10^3/uL (1.0-4.8) Monocytes # (Auto) 1.6x10^3/uL (0.0-1.1) 1.3x10^3/uL (0.0-1.1) Eosinophils # (Auto) 0.2x10^3/uL (0.0-0.7) 0.3x10^3/uL (0.0-0.7) Basophils # (Auto) 0.2x10^3/uL (0.0-0.2) 0.1x10^3/uL (0.0-0.2) Sodium Level 140mmol/L (136-145) 140mmol/L (136-145) Potassium Level 3.3mmol/L (3.5-5.1) 3.4mmol/L (3.5-5.1) Chloride Level 99mmol/L (98-107) 103mmol/L (98-107) Carbon Dioxide Level 31mmol/L (21-32) 28mmol/L (21-32) Anion Gap 10 (6-14) 9 (6-14) Blood Urea Nitrogen 10mg/dL (7-20) 9mg/dL (7-20) Creatinine 0.8mg/dL (0.6-1.0) 0.7mg/dL (0.6-1.0) Estimated GFR (Cockcroft-Gault) 91.9 107.2 Glucose Level 157mg/dL (70-99) 146mg/dL (70-99) Calcium Level 9.6mg/dL (8.5-10.1) 8.5mg/dL (8.5-10.1) Lactic Acid Level 1.2mmol/L (0.4-2.0) BUN/Creatinine Ratio 13 (6-20) Magnesium Level 2.0mg/dL (1.8-2.4) Total Bilirubin 0.3mg/dL (0.2-1.0) Aspartate Amino Transf (AST/SGOT) 12U/L (15-37) Alanine Aminotransferase (ALT/SGPT) 17U/L (14-59) Alkaline Phosphatase 67U/L (46-116) Total Protein 6.9g/dL (6.4-8.2) Albumin 2.7g/dL (3.4-5.0) Albumin/Globulin Ratio 0.6 (1.0-1.7) Review of Systems Review of Systems abd pain improved. no diarrhea. did have BRBPR, small amount, w/o stool, this AM VIKKI MALDONADO MD Aug 01, 2016 12:29
[2016-08-01] MEDS: CYCLOBENZAPRINE 10 MG TABLET. PO SCH ×3 (14:00→21:01)
[2016-08-01] MEDS: METRONIDAZOLE 500 MG TABLET. PO SCH ×2 (14:15→21:01)
[2016-08-01] MEDS: CIPROFLOXACIN HCL 250 MG TABLET PO SCH ×2 (14:15→21:01)
[2016-08-01 15:00] VITALS: BP 135/76
[2016-08-01 19:00] VITALS: BP 134/72
[2016-08-01 23:00] VITALS: BP 130/75
[2016-08-02 03:00] VITALS: BP 128/75
[2016-08-02] MEDS: POTASSIUM CHLORIDE 30 MEQ in IV 1/2 NORMAL SALINE 1,000 ML IV SCH (06:58)
[2016-08-02 07:00] VITALS: BP 140/83
[2016-08-02] MEDS: METRONIDAZOLE 500 MG TABLET. PO SCH (08:33)
[2016-08-02] MEDS: CYCLOBENZAPRINE 10 MG TABLET. PO SCH (08:33)
[2016-08-02] MEDS: CIPROFLOXACIN HCL 250 MG TABLET PO SCH (08:34)
[2016-08-02] MEDS: INSULIN ASPART 300 UNITS/3 ML INSULN.PEN SQ SCH ×2 (08:38→11:39)
--- NOTE | 2016-08-02 09:08 | PDOC ---
PROGRESS NOTES Chief Complaint Chief Complaint Colitis ASSESSMENT AND PLAN: 1. Colitis: suspected infectious with WBC response clinical presentation and CT imaging, but cannot r/o ischemic. cautious PO intake. cont Abx. pain much improved 2. DM: well controlled. holding sitagliptin for now. ISS 3. Hypokalemia: replete IV 4. anemia: acute drop in H/H, suspect more dilutional than GI bleed. monitor 5. HTN: well controlled on home regimen. 6. HLD: on statin 7. Prophylaxis: PPI 8. Dispo: home today, F/U w/ GI Vitals Vitals Vital Signs Date Time Temp Pulse Resp B/P Pulse Ox O2 Delivery O2 Flow Rate FiO2 08/02/16 07:00 98.3 65 17 140/83 96 Room Air 98.3 Physical Exam General: Alert, Oriented X3, Cooperative Heart: Regular rate Lungs: Clear Abdomen: Normal bowel sounds, Soft, No tenderness Extremities: No edema Skin: No rashes Labs LABS Laboratory Tests Test 08/01/16 14:16 08/01/16 16:56 08/02/16 07:24 Glucose (Fingerstick) 126mg/dL (70-99) 109mg/dL (70-99) 152mg/dL (70-99) Review of Systems Review of Systems feels good. L sided abd pain minimal, no N/V. no BM, no blood x24h VIKKI MALDONADO MD Aug 02, 2016 09:08
[2016-08-02 09:50] LABS: BASO # 0.1 x10^3/uL (0.0-0.2); BASO % 1 % (0-3); EOS % 2 % (0-3); HEMATOCRIT 36.5 % (36.0-47.0); HEMOGLOBIN 11.8 g/dL (12.0-15.5); LYMPH % 26 % (24-48); MEAN CORPUSCULAR HEMOGLOBIN 27 pg (25-35); MEAN CORPUSCULAR HGB CONC 32 g/dL (31-37); MEAN CORPUSCULAR VOLUME 83 fL (79-100); MONO % 6 % (0-9); NEUT % 65 % (31-73); PLATELET COUNT 364 x10^3/uL (140-400); RED BLOOD COUNT 4.42 x10^6/uL (3.50-5.40); RED CELL DISTRIBUTION WIDTH 15.2 % (11.5-14.5); WHITE BLOOD COUNT 11.3 x10^3/uL (4.0-11.0)
[2016-08-02 10:05] LABS: CALCIUM 8.5 mg/dL (8.5-10.1); CREATININE 0.7 mg/dL (0.6-1.0); GFR 107.2; POTASSIUM 3.7 mmol/L (3.5-5.1)
--- NOTE | 2016-08-02 10:39 | DISCH ---
DISCHARGE INSTRUCTIONS Condition on Discharge Condition on Discharge: Stable Activity After Discharge Activity Instructions for Disc: No restrictions Diet after Discharge Diet after Discharge: Marija Contacting the DR. after DC Call your doctor for: If your condition worsens Follow-Up Follow up with: PCP in 1 week Follow Up With: Dr Faulkner in 1 month VIKKI MALDONADO MD Aug 02, 2016 10:39
[2016-08-02 10:56] VITALS: BP 137/78
--- NOTE | 2016-08-03 01:30 | DS ---
DATE OF DISCHARGE: 08/02/2016 CHIEF COMPLAINT: Colitis. HOSPITAL COURSE: The patient is a 51-year-old woman who had presented end of July to the Emergency Room with abdominal pain. CAT scan was found to be positive for colitis and she initially had been discharged on antibiotics. However, the patient did not tolerate p.o. with nausea, vomiting, abdominal pain and therefore represented 2 days later for same issues. She was promptly admitted. Her symptoms actually improved significantly with rehydration. GI service, Dr. Faulkner, saw the patient and deemed this to be ischemic colitis as the patient had developed scanned bright red blood per rectum on day of admission. Although, initially kept on clear liquids, diet was advanced and the patient tolerated it without any difficulties and she was therefore discharged. No further diarrhea or hematochezia was noted. Anemia was minimal and thought to be more secondary to hemodilution, remained above 11 during hospitalization. PHYSICAL EXAMINATION: Please refer to note from same day, discharge date 08/02/2016. DISCHARGE DISPOSITION: To home. DISCHARGE CONDITION: Stable. DISCHARGE DIAGNOSES: Colitis, infectious versus ischemic. DISCHARGE MEDICATIONS: Please refer to MAR. DISCHARGE INSTRUCTIONS: The patient will follow up with PCP in 1-2 weeks. She will see Dr. Faulkner as needed. VIKKI MALDONADO MD DR: UR/nts JOB#: [id number] / [id number] LUPE Paul MD [facility]
== END 2016-08-02 12:24 | disposition home or self-care (01) | DRG 394 ==
LOC: ER 11:48 → 5 SOUTH 14:25
PROVIDERS: ADMIT Internal Medicine Hematology & Oncology; ATTEND Internal Medicine Hematology & Oncology
DX: K55.9 Vascular disorder of intestine, unspecified (principal); A09 Infectious gastroenteritis and colitis, unspecified; K57.90 Diverticulosis of intestine, part unspecified, without perforation or abscess without bleeding; E11.9 Type 2 diabetes mellitus without complications; E78.00 Pure hypercholesterolemia, unspecified; E78.5 Hyperlipidemia, unspecified; E87.6 Hypokalemia; I10 Essential (primary) hypertension; E66.9 Obesity, unspecified; G89.29 Other chronic pain; M54.9 Dorsalgia, unspecified; E86.0 Dehydration; D72.829 Elevated white blood cell count, unspecified; K76.0 Fatty (change of) liver, not elsewhere classified; D64.9 Anemia, unspecified; K21.9 Gastro-esophageal reflux disease without esophagitis; Z79.4 Long term (current) use of insulin; Z80.0 Family history of malignant neoplasm of digestive organs; Z80.1 Family history of malignant neoplasm of trachea, bronchus and lung; Z80.3 Family history of malignant neoplasm of breast; Z87.891 Personal history of nicotine dependence; Z90.710 Acquired absence of both cervix and uterus; Z98.890 Other specified postprocedural states
CPT/HCPCS: 36415; 80048; 80053; 82274; 82947; 83605; 83735; 85027; 96361; 96374; 96375; 96376; J1815; J2405; J3010; J7030; 99285-25